=== PATIENT | male | born 1960 | race Caucasian/White ===

== ENCOUNTER 2020-05-06 08:41 | Emergency (ER) | payer MEDICARE, MEDICAID ==
[~2020-05-06] VITALS: Ht 167.6 cm; Wt 5.9 kg
[2020-05-06 09:08] VITALS: BP 141/105
== END 2020-05-06 10:24 | disposition home or self-care (01) ==
LOC: ER 08:41
DX: M54.32 Sciatica, left side (principal); Z88.8 Allergy status to other drugs, medicaments and biological substances
CPT/HCPCS: 99282

== ENCOUNTER 2020-10-22 23:14 | Emergency (ER) | payer MEDICARE, MEDICAID ==
--- NOTE | 2020-10-22 23:32 | NUR ---
LEFT WITHOUT TRIAGE.
== END 2020-10-23 00:42 | disposition left against medical advice (07) ==
LOC: ER 23:17
DX: M79.669 Pain in unspecified lower leg (principal); Z53.21 Procedure and treatment not carried out due to patient leaving prior to being seen by health care provider

== ENCOUNTER 2020-10-24 22:14 | Emergency (ER) | payer OTHER, MEDICARE, MEDICAID ==
[~2020-10-24] VITALS: Ht 162.6 cm; Wt 57.3 kg
[2020-10-24 22:24] VITALS: BP 144/97
[2020-10-24] MEDS ORDERED: ketorolac trometh. 30mg/ml inj. IM ONE (23:05)
== END 2020-10-24 23:55 | disposition home or self-care (01) ==
LOC: ER 22:15
DX: G89.29 Other chronic pain (principal); M54.42 Lumbago with sciatica, left side; F17.200 Nicotine dependence, unspecified, uncomplicated; F12.90 Cannabis use, unspecified, uncomplicated; Z59.0 Homelessness; Z88.8 Allergy status to other drugs, medicaments and biological substances
CPT/HCPCS: 96372; 99283; J1885

== ENCOUNTER 2020-12-26 18:12 | Emergency (ER) | payer OTHER, MEDICARE, MEDICAID ==
[~2020-12-26] VITALS: Ht 167.6 cm; Wt 55.4 kg
[2020-12-26] MEDS ORDERED: SULF1TAB49 PO (21:49)
[2020-12-26 22:37] VITALS: BP 154/62
== END 2020-12-26 22:39 | disposition home or self-care (01) ==
LOC: ER 18:13
DX: L02.414 Cutaneous abscess of left upper limb (principal); M79.601 Pain in right arm; G89.29 Other chronic pain; F12.90 Cannabis use, unspecified, uncomplicated; Z59.0 Homelessness; Z88.8 Allergy status to other drugs, medicaments and biological substances; Z79.2 Long term (current) use of antibiotics
CPT/HCPCS: 10060; 73080; 73090; 99284

== ENCOUNTER 2020-12-27 18:36 | Emergency (ER) | payer OTHER, MEDICARE, MEDICAID ==
[~2020-12-27] VITALS: Ht 167.6 cm; Wt 55.0 kg
[~2020-12-27 18:36] MED LIST: SULF1TAB49 PO
[2020-12-27 18:45] VITALS: BP 126/86
[2020-12-27] MEDS ORDERED: acetaminophen 325mg tablet PO ONE (18:50)
[2020-12-27] MEDS ORDERED: ibuprofen tablet 400 MG TABLET PO ONE (18:50)
[2020-12-27] MEDS ORDERED: sulfamethoxazole/trimethoprim DS (800/160mg) tablet PO ONE (18:50)
== END 2020-12-28 00:57 | disposition left against medical advice (07) ==
LOC: ER 18:36
DX: L03.119 Cellulitis of unspecified part of limb (principal); Z53.21 Procedure and treatment not carried out due to patient leaving prior to being seen by health care provider

== ENCOUNTER 2021-11-02 09:23 | Emergency (ER) | payer OTHER, MEDICARE, MEDICAID ==
[~2021-11-02] VITALS: Ht 167.6 cm; Wt 56.8 kg
[2021-11-02 09:28] VITALS: BP 161/106
[2021-11-02] MEDS ORDERED: IBUP-1986 PO (11:31)
[2021-11-02] MEDS ORDERED: TRAM50TA2 PO (11:31)
== END 2021-11-02 11:40 | disposition home or self-care (01) ==
LOC: ER 09:23
DX: M25.512 Pain in left shoulder (principal); G89.29 Other chronic pain; F12.90 Cannabis use, unspecified, uncomplicated; Z59.00 Homelessness unspecified; Z88.8 Allergy status to other drugs, medicaments and biological substances; Z79.899 Other long term (current) drug therapy
CPT/HCPCS: 73030; 99283

== ENCOUNTER 2022-09-25 13:13 | Emergency (ER) | payer OTHER, MEDICARE, MEDICAID ==
[~2022-09-25] VITALS: Ht 168.9 cm; Wt 69.1 kg
[~2022-09-25 13:13] MED LIST changes: +ALBU18HF2 PO; +LINE600T14 PO; +LISI20TA28 PO; +LITH450T2 PO; +METF-438 PO; +NALO4SPR BOTHNARES; -SULF1TAB49 PO; +TAM75C PO
[2022-09-25 13:19] VITALS: BP 126/99
== END 2022-09-25 14:32 | disposition home or self-care (01) ==
LOC: ER 13:13
DX: L03.116 Cellulitis of left lower limb (principal); F12.10 Cannabis abuse, uncomplicated; F15.10 Other stimulant abuse, uncomplicated; J44.9 Chronic obstructive pulmonary disease, unspecified; G89.29 Other chronic pain; M54.9 Dorsalgia, unspecified; Z79.899 Other long term (current) drug therapy; Z79.1 Long term (current) use of non-steroidal anti-inflammatories (NSAID); Z79.2 Long term (current) use of antibiotics; Z59.00 Homelessness unspecified
CPT/HCPCS: 20610; 99284

== ENCOUNTER 2022-11-12 18:50 | Emergency (ER) | payer OTHER, MEDICARE, MEDICAID ==
[~2022-11-12] VITALS: Ht 167.6 cm; Wt 67.3 kg
[2022-11-12 19:01] VITALS: BP 131/85
[2022-11-12] MEDS ORDERED: bacitracin 15gm ointment TP ONE (20:35)
[2022-11-12] MEDS ORDERED: clindamycin 150mg capsule PO ONE (21:30)
[2022-11-12] MEDS ORDERED: CLIN-30 PO (21:33)
== END 2022-11-12 22:36 | disposition home or self-care (01) ==
LOC: ER 18:50
DX: M25.561 Pain in right knee (principal); M25.562 Pain in left knee; L03.115 Cellulitis of right lower limb; L03.116 Cellulitis of left lower limb; G89.29 Other chronic pain; F12.10 Cannabis abuse, uncomplicated; F15.10 Other stimulant abuse, uncomplicated; Z59.00 Homelessness unspecified; Z88.5 Allergy status to narcotic agent; Z79.899 Other long term (current) drug therapy
CPT/HCPCS: 73564; 99283

== ENCOUNTER 2022-11-21 10:58 | Emergency (ER) | payer OTHER, MEDICARE, MEDICAID ==
[~2022-11-21] VITALS: Ht 167.6 cm; Wt 63.6 kg
[2022-11-21 11:06] VITALS: BP 118/84
[2022-11-21] MEDS ORDERED: NAPR-56 PO (13:01)
== END 2022-11-21 13:25 | disposition home or self-care (01) ==
LOC: ER 10:59
DX: S80.212A Abrasion, left knee, initial encounter (principal); S80.211A Abrasion, right knee, initial encounter; J44.9 Chronic obstructive pulmonary disease, unspecified; E11.9 Type 2 diabetes mellitus without complications; G89.29 Other chronic pain; M54.9 Dorsalgia, unspecified; F12.10 Cannabis abuse, uncomplicated; F15.10 Other stimulant abuse, uncomplicated; X58.XXXA Exposure to other specified factors, initial encounter; Y93.89 Activity, other specified; Y92.89 Other specified places as the place of occurrence of the external cause; Y99.8 Other external cause status
CPT/HCPCS: 99284

== ENCOUNTER 2023-11-03 10:15 | Emergency (ER) | payer OTHER, MEDICARE ==
[~2023-11-03] VITALS: Ht 167.6 cm; Wt 72.7 kg
[2023-11-03 10:17] VITALS: TEMP 98.7
[2023-11-03 13:13] VITALS: BP 113/72; PULSE 85; O2SAT 99
[2023-11-03] MEDS: cyclobenzaprine 10mg tablet PO ONE (13:59)
[2023-11-03] MEDS: ketorolac trometh. 30mg/ml inj. IM ONE (14:00)
[2023-11-03 15:07] VITALS: RESP 18
== END 2023-11-03 15:55 | disposition home or self-care (01) ==
LOC: ER 10:16
DX: M62.838 Other muscle spasm (principal); J44.9 Chronic obstructive pulmonary disease, unspecified; E11.9 Type 2 diabetes mellitus without complications; G89.29 Other chronic pain; M54.9 Dorsalgia, unspecified; F12.90 Cannabis use, unspecified, uncomplicated; F15.90 Other stimulant use, unspecified, uncomplicated; Z59.00 Homelessness unspecified; Z88.8 Allergy status to other drugs, medicaments and biological substances; Z79.899 Other long term (current) drug therapy; Z79.84 Long term (current) use of oral hypoglycemic drugs
CPT/HCPCS: 96372; 99283; J1885